=== PATIENT | female | born 2000 | race Caucasian/White ===

== ENCOUNTER 2025-05-08 10:14 | Emergency (ER) | payer OTHER, SELFPAY ==
[2025-05-08 10:17] VITALS: BP 150/86; PULSE 85; RESP 18; TEMP 36.6; O2SAT 100; BMI 32.3
--- NOTE | 2025-05-08 10:24 | ECG_ITS ---
Test Reason : allergic reaction Blood Pressure : */* mmHG Vent. Rate : 74 BPM Atrial Rate : 74 BPM P-R Int : 146 ms QRS Dur : 88 ms QT Int : 376 ms P-R-T Axes : 33 3 16 degrees QTcB Int : 417 ms Normal sinus rhythm Normal ECG No previous ECGs available Referred By: Zina Castro Electronically Signed By: Sergey Mckeon
[2025-05-08 10:27] VITALS: BP 119/76; PULSE 76; RESP 12; TEMP 36.9; O2SAT 100
--- NOTE | 2025-05-08 10:37 | ED_ITS ---
HPI - Allergic Reaction General Chief complaint: Allergic Reaction Stated complaint: allergic reaction Time Seen by Provider: 05/08/25 10:30 Source: patient Mode of arrival: ambulatory Limitations: no limitations History of Present Illness ED Provider: Emerald Da Silva PA-C HPI narrative: 25-year-old female presenting to the emergency department today over concerns of allergic reaction. About 1 hour prior to arrival, patient was in on a surgery wearing a mask at a [facility]. She felt she had an allergic reaction happening, when she asked anyone about her any known allergen of broccoli; the surgeon had broccoli prior to arrival. Patient's face started to flush and she felt itchy she stepped out of the surgery and started develop hives both on her face and chest this concerned her where she took Benadryl and then driving home she started to feel like she had some chest tightness and vomited and as she was close to here drove herself here. She took 50 mg PO benadryl prior to arrival (at first reported only as 25 mg). She has had anxiety before in the past and this feels different to her she has never had hives with anxiety. She denies any current GI distress just feels like her chest is tight. She denies any lip or tongue swelling. When she was younger she had allergic reaction to broccoli and can not recall if it was anaphylaxis or not and has not had it again since that time. She has not carry an EpiPen on her. She reported days of rash on chest in triage, but denied this to me and reported only today. MD complaint: allergic reaction Related Data Previous Rx's ?Medication ?Instructions ?Recorded epinephrine 0.3 mg/0.3 mL 0.3 mg (0.3 mL) IM Q10M PRN 05/08/25 injection, auto-injector (EpiPen anaphylaxis #2 ea 2-Sebastian) prednisone 20 mg tablet 40 mg (2 x 20 mg) PO DAILY # 8 tabs 05/08/25 Allergies Allergy/AdvReac Type Severity Reaction Status Date / Time amoxicillin Allergy Anaphylaxis Verified 05/08/25 10:19 broccoli Allergy Anaphylaxis Verified 05/08/25 10:19 cauliflower Allergy Anaphylaxis Verified 05/08/25 10:19 Review of Systems 2 Review of Systems: Yes all other systems are reviewed and are negative PMFSH Past Medical History Attestation statement: The following information was validated with the patient. Source: old records reviewed and nursing notes reviewed Social History Social History Advance Directives: Yes Advance Directives Information Provided: Yes Advance Directives on File: No Physical Exam ED Exam Exam: General: Appears in no acute distress, appears well nourished body habitus is average, appears stated age. No septic or ill-appearing. Vitals reviewed normal, PMH/Social and Surgical hx reviewed including allergies and current medications. - reviewed for prior visits here Head: Normocephalic, no obvious trauma or skin lesions noted. Patient appears anxious Eyes: EOMI ENMT: moist oral mucosa, uvula is midline no trismus no tongue or lip swelling, mild hives on patient's bilateral zygomatic arches, no lymphadenopathy. Neck: trachea midline, no accessory muscle use, few hives on patient's anterior chest wall Cardiovascular: peripheral perfusion normal, Regular heart rate, regular rhythm Respiratory: no respiratory distress, lungs clear to auscultation bilaterally patient making full sentences Abdomen: nondistended Extremities: warm and moving without difficulty unless otherwise detailed in physical exam if applicable. Psych: Cooperative Neuro: Alert and oriented. Vital Signs: Vital Signs - 24 hr 05/08/25 10:27 05/08/25 11:50 05/08/25 12:00 Temperature 98.4 F 98.2 F 98.2 F Pulse Rate 76 78 78 Respiratory Rate 12 15 15 Blood Pressure 119/76 137/68 137/68 Pulse Oximetry 100 100 100 Oxygen Delivery Method Room Air Room Air Room Air BMI result Body Mass Index 32.3 Medications Administered Discontinued Medications Generic Name Dose Route Start Last Admin Trade Name Freq PRN Reason Stop Dose Admin Epinephrine 0.3 mg 05/08/25 10:37 05/08/25 11:06 Epinephrine 1 Mg/Ml Vial IM 05/08/25 10:38 Not Given STAT STA Famotidine 20 mg 05/08/25 10:37 05/08/25 11:04 Famotidine/Pf 20 Mg/2 Ml Vial IVPUSH 05/08/25 10:38 20 mg ONCE ONE Administration Methylprednisolone Sodium Succinate 60 mg 05/08/25 10:37 05/08/25 11:04 Methylprednisolone Sod Succ 125 Mg/2 Ml Vial IVPUSH 05/08/25 10:38 60 mg ONCE ONE Administration Medical Decision Making Medical Decision Making [facility] Narrative: Well-appearing 25-year-old female with known history to broccoli exposed via air droplets today with diffuse hives. Upon arrival to ED she is afebrile and well- appearing no acute distress vital signs and normal. The patient was promptly seen and evaluated. ?They arrived with concerns for an allergic reaction. ?Patient had diffuse hives on face, GI distress and chest tightness, VSS. ?I was concerned about anaphylaxis ?Epinephrine, Solu-Medrol, and Pepcid were ordered. ?Patient had already taken Benadryl 50 mg (helped hives on face and chest). ?She is not hypotensive IV fluids deferred. From triage basic labs were ordered. Patient has declined epinephrine stating that she feels better and does not want to stay. Hives have completely diminished her lungs remain clear to auscultation bilaterally no evidence of angioedema or anaphylaxis. Labs show microcytic anemia she denies feeling short of breath or dizziness or lightheadedness. Recommend following up outpatient with her PCP. no metabolic dysfunction. This is felt to be an allergic reaction. This patient was not given epinephrine and wished to go home it has been at least 2 hours it did feel this would be appropriate but I gave her a script for EpiPen as well as prednisone to kidney new starting tomorrow. Patient will seek medical attention again for concerns she was given ED precautions she agreed to plan. she was discharged home Differential Diagnosis Differential Diagnoses: The differential diagnosis associated with the presentation includes anaphylaxis urticaria allergic reaction stress hives Admission/Observation Consideration of admission/observation: Escalation of care including admission/observation considered Patient would have been admitted to the hospital had her work up had any findings where hospital admission was appropriate and her clinical presentation warranted hospital admission. Lab Data [facility] Lab Attestation statement: I reviewed the patient's lab results. anemia 05/08/25 10:37 05/08/25 10:37 Labs: Lab Results 05/08/25 Range/Units 10:37 WBC 8.6 (4.8-10.8) X10*3/uL RBC 4.77 (4.20-5.50) X10*6/uL Hgb 9.4 L (12.0-16.0) g/dl Hct 31.5 L (37.0-47.0) % MCV 66.0 L (80.0-98.0) fL MCH 19.7 L (27.0-33.0) pg MCHC 29.8 L (31.0-35.0) g/dl RDW 18.0 H (11.0-16.0) % Plt Count 460 H (160-400) X10*3/uL MPV 10.1 (9.4-12.3) fL Immature Gran % (Auto) 0.1 (0.0-0.4) % Neut % (Auto) 62.7 (45-73) % Lymph % (Auto) 27.8 (20-40) % Randolph % (Auto) 7.9 (2-11) % Eos % (Auto) 1.0 (0-4) % Baso % (Auto) 0.5 (0-2) % Lymph # (Auto) 2.4 (1.2-4.9) X10*3/uL Randolph # (Auto) 0.7 (0.1-1.2) X10*3/uL Eos # (Auto) 0.1 (0.0-0.4) X10*3/uL Baso # (Auto) 0.0 (0.0-0.2) X10*3/uL Abs Immat Gran (auto) 0.01 (0.00-0.03) X10*3/uL Absolute Neuts (auto) 5.4 (2.0-8.3) x10*3/uL Absolute Nucleated RBC 0.000 (0.0-0.012) X10*3/uL Nucleated RBC % (auto) 0.0 (0.0-0.2) /100WBC Sodium 142 (135-145) mmol/L Potassium 3.8 (3.3-5.1) mmol/L Chloride 108 (96-108) mmol/L Carbon Dioxide 25 (22-29) mmol/L Anion Gap 13 (12-20) BUN 10 (9-16) mg/dL Creatinine 0.62 (0.5-1.4) mg/dL Estim Creat Clear Calc 154.6 Estimated GFR > 60 Random Glucose 80 (60-115) mg/dL Calcium 9.5 (8.4-10.2) mg/dL Magnesium 2.0 (1.6-2.6) mg/dL Total Bilirubin 0.3 (0.0-1.0) mg/dL AST 30 (5-31) U/L ALT 21 (0-31) U/L Alkaline Phosphatase 92 (39-117) U/L Total Protein 7.3 (6.5-8.0) g/dL Albumin 4.8 (3.5-5.0) g/dL Independent Interpretation I performed an independent interpretation of an: EKG Interpretation: 74 bpm, No overt evidence of STEMI. No evidence of Brugada's sign, delta wave, epsilon wave, significantly prolonged QTc, or malignant arrhythmia Prescription Management I considered prescription management with: Other (Steroids and epinephrine) Discharge Plan Discharge Clinical Impression: Allergic reaction, Anemia Patient Disposition: Home, Self-Care Additional Instructions: You were evaluated for hives and respiratory symptoms following known allergen exposure. You declined epinephrine while here. You received IV steroid and histamine rasheed (famotidine) while here. You hives resolved. This appears to be an allergic reaction. Take prednisone starting tomorrow to help prevent rebound reaction. Allergic reactions tend to wax and wane.? You may have symptoms over a few days. Take benadryl 25-50 mg every 6-8 hours for 2-3 days, or until it has been 24 hours since you had any allergic symptoms, then as needed for allergic symptoms. Return immediately for worsening rash, wheezing, shortness of breath, throat closing, difficulty breathing, tongue swelling or any other concerns. You should see your doctor or return to the clinic in the next 2-3 days for follow-up. Use epinephrine if concerns of lip or tongue swelling or dyspnea with allergy in the future then call 911. Prescriptions: New prednisone 20 mg tablet 40 mg PO DAILY Qty: 8 0RF epinephrine [EpiPen 2-Sebastian] 0.3 mg/0.3 mL auto-injector 0.3 mg IM Q10M PRN (Reason: anaphylaxis) Qty: 2 0RF Rx Instructions: for 2 doses Referrals: Physician,Unknown J [Primary Care Provider, Medical] Stand Alone Forms: Work/School Release Interventions: ED Discharge Assessment Last Done: 05/08/25 12:00 Discharge Date/Time: 05/08/25 12:07 Print Language: Greenlandic
[2025-05-08 10:54] LABS: MANUAL DIFF FLAG NO
[2025-05-08 11:02] LABS: Hematocrit 31.5 % (37.0-47.0); Hemoglobin 9.4 g/dl (12.0-16.0); Imm Gran Abs Auto 0.01 X10*3/uL (0.00-0.03); Imm Gran Pct Auto 0.1 % (0.0-0.4); Lymphocytes Absolute Auto 2.4 X10*3/uL (1.2-4.9); Mean Corpuscular HGB Conc 29.8 g/dl (31.0-35.0); Mean Corpuscular Hemoglobin 19.7 pg (27.0-33.0); Mean Corpuscular Volume 66.0 fL (80.0-98.0); NRBC Abs Auto 0.000 X10*3/uL (0.0-0.012); NRBC Pct Auto 0.0 /100WBC (0.0-0.2); Platelet Count 460 X10*3/uL (160-400); Red Blood Count 4.77 X10*6/uL (4.20-5.50); White Blood Count 8.6 X10*3/uL (4.8-10.8)
[2025-05-08 11:26] LABS: Alanine Aminotransferase 21 U/L (0-31); Albumin Level 4.8 g/dL (3.5-5.0); Alkaline Phosphatase 92 U/L (39-117); Anion Gap 13 (12-20); Aspartate Amino Transferase 30 U/L (5-31); Blood Urea Nitrogen 10 mg/dL (9-16); Calcium 9.5 mg/dL (8.4-10.2); Carbon Dioxide 25 mmol/L (22-29); Chloride 108 mmol/L (96-108); Creatinine Clr Calc Pharmacy 154.6; Estimated Glomerular Filt Rate > 60; Magnesium 2.0 mg/dL (1.6-2.6); Potassium 3.8 mmol/L (3.3-5.1); Sodium 142 mmol/L (135-145); Total Protein 7.3 g/dL (6.5-8.0)
[2025-05-08 11:50] VITALS: BP 137/68; PULSE 78; RESP 15; TEMP 36.8; O2SAT 100
[2025-05-08 12:00] VITALS: BP 137/68; PULSE 78; RESP 15; TEMP 36.8; O2SAT 100
--- OUTSIDE RECORDS SUMMARY | 2025-05-08 12:34 | XMS_ITS | Encounter Summary ---
Author Organization [facility] Address [address] [place] [address] Phone Care Team Providers Care Face Burler Name Role Phone Shawna Jacobson MD Primary Care Provider [phone] Reason for Visit * Reason Comments Med Refill Encounter Details Date Type Department Care Team ([facility] st Contact Info) Description 04/16/2020 Refill [facility] [address] [address] Mindi Abdi NP [address] [phone] Anxiety Social History Tobacco Use Types Packs/Day Years Used Date Smoking Tobacco: Never Comments:never smoker Comments Unknown Sex and Gender Information Value Date Recorded Sex Assigned at Female 04/21/2019 2:00 PM EDT Legal Sex Female 4:37 PM EST Gender Identity Female 04/21/2019 2:00 PM EDT Sexual Orientation Bisexual 04/21/2019 2: 00 PM EDT documented as of this encounter Miscellaneous Notes * Telephone Encounter - Baldomero Juan RN - 04/16/2020 1:11 PM EDT Last CP: 04/21/19 Last RF: 02/15/20 x2 mo Pt has VV CP tomorrow 04/17/20 with [facility], can refill then To [facility], looks like pt will need refill of both 10mg and 20 mg capsules documented in this encounter Plan of Treatment Not on file documented as of this encounter Visit Diagnoses Diagnosis Anxiety Anxiety state, unspecified documented in this encounter Care Teams Face Burler Relationship Specialty Start Date End Date Kavon, Shawna J, MD [address] [place] [address] PCP - General 10/27/16 11/03/21 documented as of this encounter
--- OUTSIDE RECORDS SUMMARY | 2025-05-08 12:34 | XMS_ITS | Encounter Summary ---
Author Organization [facility] Address [address] [place] [address] Phone Care Team Providers Care Coining Press Operator Name Role Phone Shawna Jacobson MD Primary Care Provider [phone] Encounter Details Date Type Department Care Team ([facility] st Contact Info) Description 02/16/2017 Conversion Encounter [facility] [address] [address] Shawna Jacobson MD [address] [address] Social History Tobacco Use Types Packs/Day Years Used Date Smoking Tobacco: Never Comments:never smoker Comments Unknown Sex and Gender Information Value Date Recorded Sex Assigned at Female 04/21/2019 2:00 PM EDT Legal Sex Female 4:37 PM EST Gender Identity Female 04/21/2019 2:00 PM EDT Sexual Orientation Bisexual 04/21/2019 2: 00 PM EDT documented as of this encounter Plan of Treatment Not on file documented as of this encounter Visit Diagnoses Not on filedocumented in this encounter Care Teams Coining Press Operator Relationship Specialty Start Date End Date Shawna Jacobson MD [address] [address] PCP - General 10/27/16 11/03/21 documented as of this encounter
--- OUTSIDE RECORDS SUMMARY | 2025-05-08 12:34 | XMS_ITS | Encounter Summary ---
Author Organization [facility] Address [address] [place] [phone] Phone Care Team Providers Care Food Product Inspector Name Role Phone Shawna Jacobson MD Primary Care Provider [phone] Reason for Visit * Reason Comments Med Refill Encounter Details Date Type Department Care Team ([facility] st Contact Info) Description 05/16/2020 Refill [facility] [address] [place] [address] Shawna Jacobson MD 57 [place] [address] Herpes; Attention deficit hyperactivity disorder (ADHD), unspecified ADHD type Social History Tobacco Use Types Packs/Day Years Used Date Smoking Tobacco: Never Comments:never smoker Hunger/Food Answer Date Recorded In the last 12 months, did y ou or your family ever eat less than you felt you should because there wasn't enough money for food? No 05/17/2020 Stable Housing Answer Date Recorded Are you worried that in the next 2 months you may not have stable housing? No 05/17/2020 Transportation Concerns Answer Date Rec orded In the last 12 months, have you or your family ever had to go without healthcare because you didn't have a way to get there? No 05/17/2020 Hazards in Home Answer Date Recorded Think about the place you li ve. Do you have problems with any of the following? Pests (mice or roaches), mold, no/not working smoke detectors, water leaks, no window guards. No 2019 Financing Utilities Answer Date Recorde d In the last 12 months, has t he electric, gas, oil, or water company threatened to shut off your services in your home? No 05/17/2020 Safety at Home Answer Date Recorded Are you or your family worried about feeling saf e in your home? No 05/17/2020 Outside Support Answer Date Recorded Do you feel that you need mo re support from other people or programs to help you care for yourself or your family? No 05/17/2020 Understanding Health Concerns Answer Da te Recorded Do you need help understandi ng your or your child's healthcare needs (diagnosis, medications, plan, etc.)? No 05/17/2020 Financing Health Concerns Answer Date R ecorded In the last 12 months, was t here a time when your child needed to see a doctor or get medications or supplies but could not because of cost? No 05/17/2020 Missing School or Work Answer Date Emerson rded Did you or your child miss s chool or work because of a health problem that could have been avoided? No 05/17/2020 Comments Unknown Sex and Gender Information Value Date Recorded Sex Assigned at Female 04/21/2019 2:00 PM EDT Legal Sex Female 4:37 PM EST Gender Identity Female 04/21/2019 2:00 PM EDT Sexual Orientation Bisexual 04/21/2019 2: 00 PM EDT documented as of this encounter Miscellaneous Notes * Telephone Encounter - Shawna Jacobson MD - 05/16/2020 1:41 PM EDT [facility] * Telephone Encounter - Baldomero Juan RN - 05/16/2020 11:07 AM EDT VV booked for next week with [facility]. Also requesting adderall refill Last RF 01/17/20, 1 mo supply [facility], ok to refill both acyclovir (pt completely out) and adderall? * Telephone Encounter - Baldomero Juan RN - 05/16/2020 10:28 AM EDT Last CP 04/21/19 Last RF 01/17/20 Pt overdue for CP, LMTCB to book documented in this encounter Plan of Treatment Not on file documented as of this encounter Visit Diagnoses Diagnosis Herpes Herpes simplex without mention of complication Attention deficit hyperactivity disorder (ADHD), unspecified ADHD type documented in this encounter Care Teams Food Product Inspector Relationship Specialty Start Date End Date Shawna Jacobson MD [address] [place] [address] PCP - General 10/27/16 11/03/21 documented as of this encounter
--- OUTSIDE RECORDS SUMMARY | 2025-05-08 12:34 | XMS_ITS | Encounter Summary ---
Author Organization [facility] Address [address] [place] [address] Phone Care Team Providers Care Heat Transfer Technician Name Role Phone Sahwna Jacobson MD Primary Care Provider [phone] Reason for Visit * Reason Onset Date Comments Med Refill Med Refill 09/20/2018 Encounter Details Date Type Department Care Team (Late st Contact Info) Description 09/13/2018 Refill [facility] [address] [address] Shawna Jacobson MD [address] [address] Herpes Social History Tobacco Use Types Packs/Day Years Used Date Smoking Tobacco: Never Comments:never smoker Comments Unknown Sex and Gender Information Value Date Recorded Sex Assigned at Female 04/21/2019 2:00 PM EDT Legal Sex Female 4:37 PM EST Gender Identity Female 04/21/2019 2:00 PM EDT Sexual Orientation Bisexual 04/21/2019 2: 00 PM EDT documented as of this encounter Miscellaneous Notes * Telephone Encounter - Marla Mike RN - 09/13/2018 3:28 PM EST Pharmacy requesting refill for acyclovir Last CP 12/31/17, last refill 08/27/18 for 120 tabs sent to [facility]. Spoke with pharmacy, ready for tack picker but pt has not come by. They will contact her documented in this encounter Plan of Treatment Not on file documented as of this encounter Visit Diagnoses Diagnosis Herpes Herpes simplex without mention of complication documented in this encounter Care Teams Heat Transfer Technician Relationship Specialty Start Date End Date Shawna Jacobson MD 57 [place] [address] PCP - General 10/27/16 11/03/21 documented as of this encounter
--- OUTSIDE RECORDS SUMMARY | 2025-05-08 12:34 | XMS_ITS | Encounter Summary ---
Author Organization [facility] Address [address] [place] [address] Phone Care Team Providers Care Research Archaeologist Name Role Phone Shawna Jacobson MD Primary Care Provider [phone] Reason for Visit * Reason Onset Date Comments Med Refill 10/16/2021 Encounter Details Date Type Department Care Team ([facility] st Contact Info) Description 10/16/2021 Refill [facility] [address] [place] [address] Shawna Jacobson MD [address] [place] [address] ADHD, hyperactive-impulsive type Social History Tobacco Use Types Packs/Day Years Used Date Smoking Tobacco: Never Comments:never smoker Hunger/Food Answer Date Recorded In the last 12 months, did y ou or your family ever eat less than you felt you should because there wasn't enough money for food? No 05/24/2021 Stable Housing Answer Date Recorded Are you worried that in the next 2 months you may not have stable housing? No 05/24/2021 Transportation Concerns Answer Date Rec orded In the last 12 months, have you or your family ever had to go without healthcare because you didn't have a way to get there? No 05/24/2021 Hazards in Home Answer Date Recorded Think about the place you li ve. Do you have problems with any of the following? Pests (mice or roaches), mold, no/not working smoke detectors, water leaks, no window guards. No 2020 Financing Utilities Answer Date Recorde d In the last 12 months, has t he electric, gas, oil, or water company threatened to shut off your services in your home? No 05/24/2021 Safety at Home Answer Date Recorded Are you or your family worried about feeling saf e in your home? No 05/24/2021 Outside Support Answer Date Recorded Do you feel that you need mo re support from other people or programs to help you care for yourself or your family? No 05/24/2021 Understanding Health Concerns Answer Da te Recorded Do you need help understandi ng your or your child's healthcare needs (diagnosis, medications, plan, etc.)? No 05/24/2021 Financing Health Concerns Answer Date R ecorded In the last 12 months, was t here a time when your child needed to see a doctor or get medications or supplies but could not because of cost? No 05/24/2021 Missing School or Work Answer Date Emerson rded Did you or your child miss s chool or work because of a health problem that could have been avoided? No 05/24/2021 Comments Unknown Sex and Gender Information Value Date Recorded Sex Assigned at Female 04/21/2019 2:00 PM EDT Legal Sex Female 4:37 PM EST Gender Identity Female 04/21/2019 2:00 PM EDT Sexual Orientation Bisexual 04/21/2019 2: 00 PM EDT documented as of this encounter Miscellaneous Notes * Telephone Encounter - Archana Stephen RN - 10/17/2021 10:32 AM EST [facility] please see alt refill request and DENY this request * Telephone Encounter - Neris Wilson RN - 10/16/2021 2:53 PM EST See alt rx request. RN unable to deny documented in this encounter Plan of Treatment Not on file documented as of this encounter Visit Diagnoses Diagnosis ADHD, hyperactive-impulsive type documented in this encounter Care Teams Research Archaeologist Relationship Specialty Start Date End Date Shawna Jacobson MD [address] [place] [address] PCP - General 10/27/16 11/03/21 documented as of this encounter
--- OUTSIDE RECORDS SUMMARY | 2025-05-08 12:34 | XMS_ITS | Encounter Summary ---
Author Organization [facility] Address [address] [place] [address] Phone Care Team Providers Care Tool Planner Name Role Phone Unavailable Primary Care Provider Unavailabl e Reason for Visit * Reason Comments Med Refill Encounter Details Date Type Department Care Team ([facility] st Contact Info) Description 01/05/2022 Refill [facility] 57 [facility] [address] [place] [address] Bia Green NP [address] [address] Anxiety Social History Tobacco Use Types Packs/Day [...] encounter Miscellaneous Notes * Telephone Encounter - Jennifer Healy RN - 01/06/2022 11:08 AM EDT rx refused pt inactive documented in this encounter Plan of Treatment Not on file documented as of this encounter Visit Diagnoses Diagnosis Anxiety Anxiety state, unspecified documented in this encounter
--- OUTSIDE RECORDS SUMMARY | 2025-05-08 12:34 | XMS_ITS | Encounter Summary ---
Author Organization [facility] Address [address] [place] [address] Phone Care Team Providers Care Retoucher Photoengraving Name Role Phone Shawna Jacobson MD Primary Care Provider [phone] Reason for Visit * Reason Comments Med Refill Encounter Details Date Type Department Care Team ([facility] st Contact Info) Description 09/13/2018 Refill [facility] [address] [place] [place] [address] Shawna Jacobson MD [address] [place] [address] Other acne Social History Tobacco Use Types Packs/Day Years [...] Telephone Encounter - Shawna Jacobson MD - 09/14/2018 10:15 AM EST [facility] * Telephone Encounter - Whitney Simon RN - 09/13/2018 1:52 PM EST Last CP: 12/31/17 Last RF: 01/27/18 (30 days with 2 refills) *Med check was scheduled and cancelled for 09/08/18 [facility]- how would you like to proceed? documented in this encounter Plan of Treatment Not on file documented as of this encounter Visit Diagnoses Diagnosis Other acne documented in this encounter Care Teams Retoucher Photoengraving Relationship Specialty Start Date End Date Shawna Jacobson MD [address] [address] PCP - General 10/27/16 11/03/21 documented as of this encounter
--- OUTSIDE RECORDS SUMMARY | 2025-05-08 12:34 | XMS_ITS | Encounter Summary ---
Author Organization [facility] Address [address] [place] [address] Phone Care Team Providers Care Box Covering Machine Operator Name Role Phone Shawna Jacobson MD Primary Care Provider [phone] Encounter Details Date Type Department Care Team ([facility] st Contact Info) Description 02/16/2017 Conversion Encounter [facility] [address] [address] Shawna Jacobson MD [address] [address] Social History Tobacco Use Types Packs/Day Years [...] on filedocumented in this encounter Care Teams Box Covering Machine Operator Relationship Specialty Start Date End Date Shawna Jacobson MD [address] [address] PCP - General 10/27/16 11/03/21 documented as of this encounter
--- OUTSIDE RECORDS SUMMARY | 2025-05-08 12:34 | XMS_ITS | Clinical Summary ---
Author Organization [facility] Address [address] [place] [address] Phone Care Team Providers Care Snowboarder Name Role Phone Dianne Valdez MD Unavailable [phone] Shawna Jacobson MD Primary Care Provider [phone] Shawna Jacobson MD Unavailable [phone] Medications amphetamine-dex troamphetamine (AdderalL) 30 mg tablet mg, tab, PO, BID, Refills: 0, Entered: 10/03/18 9:27:17 EST 9 Active desogestreL-eth inyl estradioL (Apri) 0.15-0.03 mg tablet Entered: 08/20/16 11:36:09 EST 6 Active diclofenac sodium (Voltaren) 1 % gel Dose: 4 g, TOP, QID, PRN Pain: Moderate/Sever e (Score 4-10), Dispense Quantity: 100 g, Entered: 02/23/19 12:24:56 EDT, [facility] [id number] 9 Active fluoxetine HCl (PROZAC ORAL) PO, daily, Entered: 02/18/17 9:46:38 EDT 7 Active gabapentin 100 mg capsule See Instructions, Special Instructions: Route = PO. START dose and freq = 100mg QHS. Increase every 2 days to GOAL dose and freq = 300 BID as instructed., Dispense Quantity: 30 cap, Entered: 09/14/22 17:17:00 EST, [facility] Date[facility] 3 Active gabapentin 300 mg capsule Dose: 300 mg, Dose Amount: 1 cap, PO, BID, Dispense Quantity: 60 cap, Refills: 2, Entered: 10/22/22 7:17:00 EST, [id number] 3 Active Immunizations Immunization Administration Dates Next Due Moderna SARS-CoV-2 09/25/2021 Social History Tobacco Use Types Packs/Day Years Used Date Smoking Tobacco: Never Assessed Comments Unknown Sex and Gender Information Value Date Recorded Sex Assigned at Not on file Legal Sex Female 3:47 PM EDT Gender Identity Not on file Sexual Orientation Not on file Last Filed Vital Signs Vital Sign Reading Time Taken Comments Blood Pressure 120/81 09/09/2022 10:45 AM EST Pulse 76 09/09/2022 10:45 AM EST Temperature - - Respiratory Rate 20 09/09/2022 10:45 AM EST Oxygen Saturation 99% 09/09/2022 10:45 AM EST Inhaled Oxygen Concentration - - Weight 101 kg (222 lb 0.1 oz) 10/22/2022 7:16 AM EST Height 169.5 cm (5' 6.73 ) 10/22/2022 7:16 AM ES T Body Mass Index 35.05 10/22/2022 7:16 AM EST Plan of Treatment Upcoming Encounters Date Type Department Care Team (Late st Contact Info) Description 11/06/2025 Lab Requisition [facility] Health Maintenance Due Date Last Done Comments HIV Screening 1998 MMR Vaccines (1 of 1 - Stand jennifer series) 1999 DTaP/Tdap/Td Vaccines (1 - Tdap) 2005 Varicella Vaccines (1 of 2 - 13+ 2-dose series) 2011 Hepatitis C Screening 01/13/2016 Hepatitis B Vaccines (1 of 3 - 19+ 3-dose series) 2017 COVID-19 Vaccine (2 - 2023-2 5 season) 2024 09/25/2021 HPV Vaccines (1 - 3-dose SCD M series) 2025 Influenza Vaccine (#1) 2025 HIB Vaccines Aged Out No longer eligi ble based on patient's age to complete this topic Hepatitis A Vaccines Aged Out No long er eligible based on patient's age to complete this topic IPV Vaccines Aged Out No longer eligi ble based on patient's age to complete this topic Meningococcal B Vaccine Aged Out No l onger eligible based on patient's age to complete this topic Meningococcal Vaccine Aged Out No lety yamilet eligible based on patient's age to complete this topic Pneumococcal Vaccine: Pediat rics (0 to 5 Years) and At-Risk Patients (6 to 49 Years) Aged Out No longer eligi ble based on patient's age to complete this topic Rotavirus Vaccines Aged Out No longer eligible based on patient's age to complete this topic Care Teams Snowboarder Relationship Specialty Start Date End Date Dianne Valdez MD [address] [place] [address] PCP - Insurance PCP 07/07/22 Shawna Jacobson MD [address] [place] [address] PCP - General 10/15/17 Shawna Jacobson MD [address] [place] [address] PCP - Clinical PCP 10/15/17
--- OUTSIDE RECORDS SUMMARY | 2025-05-08 12:34 | XMS_ITS | Encounter Summary ---
Author Organization [facility] Address [address] [place] [address] Phone Care Team Providers Care Party Host Name Role Phone Shawna Jacobson MD Primary Care Provider [phone] Reason for Visit * Reason Onset Date Comments Med Refill 06/08/2021 Encounter Details Date Type Department Care Team ([facility] st Contact Info) Description 06/08/2021 Refill [facility] [address] [place] [address] Shawna Jacobson MD 57 [place] [address] ADHD, hyperactive-impulsive type Social History Tobacco Use [...] encounter Miscellaneous Notes * Telephone Encounter - Maame Moseley NP - 06/11/2021 8:32 AM EDT Has upcoming appointment, will refill then * Telephone Encounter - Baldomero Juan RN - 06/09/2021 2:28 PM EDT Spoke w/ pt, booked CP w/ [facility] for next week R[facility], pt also returning your call from Wednesday, looking to touch base. Working till 8 tonight Pt would like call when rx was sent * Telephone Encounter - Minoo Dias RN - 06/09/2021 1:04 PM EDT Last Well Visit 05/22/2020 Last refill 05/13/2021 x 1 month Last medication check 02/21/2021 LMTCB to schedule well visit To [facility] prescription pended for your review and approval documented in this encounter Plan of Treatment Not on file documented as of this encounter Visit Diagnoses Diagnosis ADHD, hyperactive-impulsive type documented in this encounter Care Teams Party Host Relationship Specialty Start Date End Date Shawna Jacobson MD [address] [address] PCP - General 10/27/16 11/03/21 documented as of this encounter
--- OUTSIDE RECORDS SUMMARY | 2025-05-08 12:34 | XMS_ITS | Encounter Summary ---
Author Organization [facility] Address [address] [place] [address] Phone Care Team Providers Care Public Service Officer Name Role Phone Shawna Jacobson MD Primary Care Provider [phone] Reason for Visit * Reason Onset Date Comments Med Refill 06/24/2020 Med Refill 07/16/2020 Encounter Details Date Type Department Care Team ([facility] st Contact Info) Description 06/24/2020 Refill [facility] [address] [address] Shawna Jacobson MD 57 [place] [address] Anxiety; ADHD, hyperactive-impulsive type Social History Tobacco Use [...] Telephone Encounter - Archana Stephen RN - 06/24/2020 11:48 AM EDT Last CP:05/22/20 Last Refill:06/21/20 & 07/21/20 (Adderall), 05/22/20 (Prozac 10mg & 20mg), & 05/22/20 (Hydroxyzine) [facility] please DENY ADDERALL, should have refills at pharmacy. If ok please refill the other meds. I donot have authorization to deny the controlled substance. documented in this encounter Plan of Treatment Not on file documented as of this encounter Visit Diagnoses Diagnosis Anxiety Anxiety state, unspecified ADHD, hyperactive-impulsive type documented in this encounter Care Teams Public Service Officer Relationship Specialty Start Date End Date Shawna Jacobson MD [address] [address] PCP - General 10/27/16 11/03/21 documented as of this encounter
--- OUTSIDE RECORDS SUMMARY | 2025-05-08 12:34 | XMS_ITS | Encounter Summary ---
Author Organization [facility] Address [address] [place] [address] Phone Care Team Providers Care Resistor Winder Name Role Phone Shawna Jacobson MD Primary Care Provider [phone] Reason for Visit * Reason Comments Med Refill Encounter Details Date Type Department Care Team ([facility] st Contact Info) Description 01/28/2021 Refill [facility] 57 [facility] [address] [place] [address] Maame Moseley NP Anxiety Social History Tobacco Use Types Packs/Day [...] Telephone Encounter - Marla Mike RN - 01/29/2021 2:22 PM EDT Pt also requesting refill for Adderall XR 30mg. Pt has hypothyroidism, soonest appt she could schedule at [facility] is 04/29/21. She is struggling with weight, tired and wants to start medication prior toAugust. Would like to discuss starting meds with [facility]. Scheduled med check for 02/05/21 To [facility], okay to refill one month of Adderall XR 30mg? Advised Minda she could discuss thyroid question when she comes in. * Telephone Encounter - Indigo Ballard - 01/29/2021 1:34 PM EDT Called and lm for pt to schedule. Will set reminder to check in in a couple days. * Telephone Encounter - Maame Moseley NP - 01/29/2021 12:36 PM EDT She is on 50. Please have her make a med check appointment in the next few weeks if she can. Thanks! * Telephone Encounter - Marla Mike RN - 01/29/2021 11:18 AM EDT Pharmacy requesting refill for fluoxetine 20mg and 10mg Last CP 05/22/20 Last med check Last refill for 10mg 12/31/20, 20mg 10/25/20 with 2 refills To [facility], is patient on 50mg daily? Has not had a med check since CP on 05/22/20 documented in this encounter Plan of Treatment Not on file documented as of this encounter Visit Diagnoses Diagnosis Anxiety Anxiety state, unspecified documented in this encounter Care Teams Resistor Winder Relationship Specialty Start Date End Date Shawna Jacobson MD [address] [address] PCP - General 10/27/16 11/03/21 documented as of this encounter
--- OUTSIDE RECORDS SUMMARY | 2025-05-08 12:34 | XMS_ITS | Encounter Summary ---
Author Organization [facility] Address [address] [place] [address] Phone Care Team Providers Care Fitting Room Operator Name Role Phone Shawna Jacobson MD Primary Care Provider [phone] Reason for Visit * Reason Comments Med Refill Encounter Details Date Type Department Care Team ([facility] st Contact Info) Description 08/21/2021 Refill [facility] [address] [place] [address] [address] [place] [address] Maame Moseley NP Anxiety Social History Tobacco [...] Telephone Encounter - Maame Moseley NP - 08/25/2021 3:51 PM EST Minda needs to make an appointment before I can refill anything. Happy for that to be telehealth, but at this point I really need to see her documented in this encounter Plan of Treatment Not on file documented as of this encounter Visit Diagnoses Diagnosis Anxiety Anxiety state, unspecified documented in this encounter Care Teams Fitting Room Operator Relationship Specialty Start Date End Date Shawna Jacobson MD [address] [address] PCP - General 10/27/16 11/03/21 documented as of this encounter
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
--- OUTSIDE RECORDS SUMMARY | 2025-05-08 12:34 | XMS_ITS | Encounter Summary ---
Author Organization [facility] Address [address] [place] [address] Phone Care Team Providers Care Low Voltage Technician Name Role Phone Shawna Jacobson MD Primary Care Provider [phone] Encounter Details Date Type Department Care Team ([facility] st Contact Info) Description 02/16/2017 Conversion Encounter [facility] [address] [address] Shawna Jacobson MD [address] [address] Social History Tobacco Use Types Packs/Day Years [...] on filedocumented in this encounter Care Teams Low Voltage Technician Relationship Specialty Start Date End Date Shawna Jacobson MD [address] [address] PCP - General 10/27/16 11/03/21 documented as of this encounter
--- OUTSIDE RECORDS SUMMARY | 2025-05-08 12:34 | XMS_ITS | Encounter Summary ---
Author Organization [facility] Address [address] [place] [address] Phone Care Team Providers Care Cupola Tapper Name Role Phone Shawna Jacobson MD Primary Care Provider [phone] Reason for Visit * Reason Onset Date Comments Med Refill 06/10/2021 Encounter Details Date Type Department Care Team ([facility] st Contact Info) Description 06/10/2021 Refill [facility] [address] [place] [address] Shawna Jacobson MD [address] [place] [address] ADHD, hyperactive-impulsive type Social History Tobacco Use [...] Encounter - Maame Moseley NP - 06/11/2021 8:31 AM EDT Has upcoming appointment, will refill then documented in this encounter Plan of Treatment Not on file documented as of this encounter Visit Diagnoses Diagnosis ADHD, hyperactive-impulsive type documented in this encounter Care Teams Cupola Tapper Relationship Specialty Start Date End Date Shawna Jacobson MD [address] [place] [address] PCP - General 10/27/16 11/03/21 documented as of this encounter
--- OUTSIDE RECORDS SUMMARY | 2025-05-08 12:34 | XMS_ITS | Encounter Summary ---
Author Organization [facility] Address [address] [place] [address] Phone Care Team Providers Care Internet Sales Director Name Role Phone Shawna Jacobson MD Primary Care Provider [phone] Reason for Visit * Reason Comments Med Refill Encounter Details Date Type Department Care Team ([facility] [place] st Contact Info) Description 05/26/2018 Refill [facility] [address] [phone] Shawna Jacobson MD 57 [place] [address] Anxiety Social History Tobacco Use Types Packs/Day [...] encounter Miscellaneous Notes * Telephone Encounter - Jennfier Healy RN - 05/27/2018 2:51 PM EDT Spoke arvind/Minda this was an auto request doesn't need, rx refused documented in this encounter Plan of Treatment Not on file documented as of this encounter Visit Diagnoses Diagnosis Anxiety Anxiety state, unspecified documented in this encounter Care Teams Internet Sales Director Relationship Specialty Start Date End Date Shawna Jacobson MD [address] [address] PCP - General 10/27/16 11/03/21 documented as of this encounter
--- OUTSIDE RECORDS SUMMARY | 2025-05-08 12:34 | XMS_ITS | Encounter Summary ---
Author Organization [facility] Address [address] [place] [address] Phone Care Team Providers Care Director Of Food And Nutrition Services Name Role Phone Shawna Jacobson MD Primary Care Provider [phone] Encounter Details Date Type Department Care Team ([facility] st Contact Info) Description 02/16/2017 Conversion Encounter [facility] [address] [address] Shawna Jacobson MD [address] [address] Social History Tobacco Use Types Packs/Day Years [...] on filedocumented in this encounter Care Teams Director Of Food And Nutrition Services Relationship Specialty Start Date End Date Shawna Jacobson MD [address] [address] PCP - General 10/27/16 11/03/21 documented as of this encounter
== END 2025-05-08 12:07 | disposition home or self-care (01) ==
PROVIDERS: Physician Assistant Medical; Emergency Provider Emergency Medicine
DX: D64.9 Anemia, unspecified (principal); T78.1XXA Other adverse food reactions, not elsewhere classified, initial encounter; L50.8 Other urticaria; X58.XXXA Exposure to other specified factors, initial encounter; R07.89 Other chest pain; R11.10 Vomiting, unspecified; F41.9 Anxiety disorder, unspecified
CPT/HCPCS: 36415; 80053; 83735; 85025; 93005; 96374; 96375; 99284; J1308; J2919

== ENCOUNTER → 2025-05-08 10:24 | Outpatient (BNV) | payer OTHER, SELFPAY | PROVIDERS: Emergency Provider Emergency Medicine; Visit Provider Internal Medicine Cardiovascular Disease | DX: T78.04XA Anaphylactic reaction due to fruits and vegetables, initial encounter (principal) | CPT/HCPCS: 93010 ==

== ENCOUNTER 2025-06-25 12:23 | Emergency (ER) | payer OTHER, SELFPAY ==
--- OUTSIDE RECORDS SUMMARY | 2025-06-25 16:27 | XMS_ITS | Encounter Summary ---
Author Organization [facility] Address [address] [place] [address] Phone Care Team Providers Care Trim And Burr Operator Name Role Phone Shawna Jacobson MD Primary Care Provider [phone] Reason for Visit * Reason Comments Med Refill Encounter Details Date Type Department Care Team ([facility] st Contact Info) Description 04/16/2020 Refill [facility] [address] [address] Mindi Abdi NP [address] [phone] Anxiety Social History Tobacco Use Types Packs/Day [...] unspecified documented in this encounter Care Teams Trim And Burr Operator Relationship Specialty Start Date End Date Kavon, Shawna J, MD 57 [place] [address] PCP - General 10/27/16 11/03/21 documented as of this encounter
--- OUTSIDE RECORDS SUMMARY | 2025-06-25 16:27 | XMS_ITS | Encounter Summary ---
Author Organization [facility] Address [address] [place] [address] Phone Care Team Providers Care Convention Manager Name Role Phone Shawna Jacobson MD Primary Care Provider [phone] Reason for Visit * Reason Comments Med Refill Encounter Details Date Type Department Care Team ([facility] st Contact Info) Description 09/13/2018 Refill [facility] [address] [place] [address] Shawna Jacobson MD 57 [place] [address] Other acne Social History Tobacco Use Types [...] acne documented in this encounter Care Teams Convention Manager Relationship Specialty Start Date End Date Shawna Jacobson MD [address] [address] PCP - General 10/27/16 11/03/21 documented as of this encounter
--- OUTSIDE RECORDS SUMMARY | 2025-06-25 16:27 | XMS_ITS | Encounter Summary ---
Author Organization [facility] Address [address] [place] [address] Phone Care Team Providers Care Nut Tapper Name Role Phone Shawna Jacobson MD Primary Care Provider [phone] Reason for Visit * Reason Comments Med Refill Encounter Details Date Type Department Care Team ([facility] st Contact Info) Description 01/28/2021 Refill [facility] 57 [facility] [address] [place] [address] Maame Moseley NP Anxiety Social History Tobacco [...] hypothyroidism, soonest appt she could schedule at [facility] is 04/29/21. She is struggling with weight, [...] unspecified documented in this encounter Care Teams Nut Tapper Relationship Specialty Start Date End Date Shawna Jacobson MD [address] [address] PCP - General 10/27/16 11/03/21 documented as of this encounter
--- OUTSIDE RECORDS SUMMARY | 2025-06-25 16:27 | XMS_ITS | Clinical Summary ---
Author Organization [facility] Address [address] [place] [address] Phone Care Team Providers Care Filer Finish Name Role Phone Unavailable Primary Care Provider [...] working Hand injury 03/07/2020 Overview (03/07/2020): 02/23/2020: [facility]: out of cast, start mobilization, home-based [...] of right hand 09/16/2018 Overview (02/19/2020): 02/23 [facility] - punched a wall with affected hand and now increased pain; x- rays negative, hardware intact but could not rule out hairline fracture; casted with f/u with Dr. Valladares in 2 weeks 02/22 s/p surgical repair, student at school pulled her finger and sprained joint. Advised splinting and strengthening. F/u in the future ([facility]) 09/24 ORIF planned ADHD, hyperactive-impulsive type [...] also need psychiatry Sees therapist Phylicia Phillips ([phone]) regularly. [facility], now [...] angry and punched wall while inpatient at [facility] No fracture seen at [facility] ED 02/17/18. Injury of left knee [...] complete this topic Procedures * Due to [place] Transfer To law, this organization might not be sharing sensitive test results. Procedure Name Priority Date/Time Associated Diagnosis Comments CHLAMYDIA AND GONORRHEA, AMPLIFIED Routine 10/28/2015 12:00 AM EST from Last 3 Months or Most Recently Relevant to Health Maintenance Results * Due to [place] Transfer To law, this organization might not be sharing sensitive test results. * Chlamydia and Gonorrhoea, Amplified (10/28/2015 12:00 AM EST) FINAL (CONV) See Below For Report CONVERTED LABS 10/28/2015 Lorna Harris NP LAB MICROBIOLOGY - [facility] Final Result Performing Organization Address City/State/[facility] Co de Phone Number CONVERTED LABS from Last 3 Months or Most Recently Relevant to Health Maintenance Insurance
--- OUTSIDE RECORDS SUMMARY | 2025-06-25 16:27 | XMS_ITS | Encounter Summary ---
Author Organization [facility] Address [address] [place] [address] Phone Care Team Providers Care Door Fitter Name Role Phone Shawna Jacobson MD Primary Care Provider [phone] Reason for Visit * Reason Comments Med Refill Encounter Details Date Type Department Care Team ([facility] st Contact Info) Description 05/26/2018 Refill [facility] [address] [phone] Shawna Jacobson MD 57 [place] [address] Anxiety Social History Tobacco Use Types Packs/Day [...] Telephone Encounter - Jennifer Healy RN - 05/27/2018 2:51 PM EDT Spoke arvind/Minda this was an auto request doesn't need, rx refused documented in this encounter Plan of Treatment Not on file documented as of this encounter Visit Diagnoses Diagnosis Anxiety Anxiety state, unspecified documented in this encounter Care Teams Door Fitter Relationship Specialty Start Date End Date Shawna Jacobson MD [address] [address] PCP - General 10/27/16 11/03/21 documented as of this encounter
--- OUTSIDE RECORDS SUMMARY | 2025-06-25 16:27 | XMS_ITS | Encounter Summary ---
Author Organization [facility] Address [address] [place] [address] Phone Care Team Providers Care Game Artist Name Role Phone Shawna Jacobson MD Primary Care Provider [phone] Encounter Details Date Type Department Care Team ([facility] st Contact Info) Description 02/16/2017 Conversion Encounter [facility] [address] [address] Shawna Jacobson MD [address] [address] Social History Tobacco Use Types Packs/Day Years [...] on filedocumented in this encounter Care Teams Game Artist Relationship Specialty Start Date End Date Shawna Jacobson MD [address] [address] PCP - General 10/27/16 11/03/21 documented as of this encounter
--- OUTSIDE RECORDS SUMMARY | 2025-06-25 16:27 | XMS_ITS | Encounter Summary ---
Author Organization [facility] Address [address] [place] [address] Phone Care Team Providers Care Mechanical Engineering Lecturer Name Role Phone Shawna Jacobson MD Primary Care Provider [phone] Reason for Visit * Reason Onset Date Comments Med Refill 06/24/2020 Med Refill 07/16/2020 Encounter Details Date Type Department Care Team ([facility] st Contact Info) Description 06/24/2020 Refill [facility] [address] [address] Shawna Jacobson MD 57 [place] [address] Anxiety; ADHD, hyperactive-impulsive type Social History Tobacco [...] type documented in this encounter Care Teams Mechanical Engineering Lecturer Relationship Specialty Start Date End Date Shawna Jacobson MD [address] [address] PCP - General 10/27/16 11/03/21 documented as of this encounter
--- OUTSIDE RECORDS SUMMARY | 2025-06-25 16:27 | XMS_ITS | Clinical Summary ---
Author Organization [facility] Address [address] [place] [address] Phone Care Team Providers Care Painter Maintenance Name Role Phone Dianne Valdez MD Unavailable [phone] Shawna Jacobson MD Primary Care Provider [phone] Shawna Jacobson MD Unavailable [phone] Medications amphetamine-dex troamphetamine (AdderalL) 30 mg tablet mg, tab, PO, BID, Refills: 0, Entered: 10/03/18 9:27:17 EST 9 Active desogestreL-eth inyl estradioL (Apri) 0.15-0.03 mg tablet Entered: 08/20/16 11:36:09 EST 6 Active diclofenac sodium (Voltaren) 1 % gel Dose: 4 g, TOP, QID, PRN Pain: Moderate/Sever e (Score 4-10), Dispense Quantity: 100 g, Entered: 02/23/19 12:24:56 EDT, [facility] [address] 9 Active fluoxetine HCl (PROZAC ORAL) PO, [...] Health Maintenance Due Date Last Done Comments Chlamydia and Gonorrhea Screening 1998 HIV Screening 1998 MMR Vaccines (1 of 1 - Standard series) 1999 DTaP/Tdap/Td Vaccines (1 - Tdap) 2005 Varicella Vaccines (1 of 2 - 13+ 2-dose series) 2011 Hepatitis C Screening 01/13/2016 Hepatitis B Vaccines (1 of 3 - 19+ 3-dose series) 2017 Influenza Vaccine (#1) 2025 Anemia Screening 08/15/2026 08/15/2021, 11/04/2020 HIB Vaccines Aged Out No longer eligi ble based on patient's age to complete this topic HPV Vaccines (No Doses Required) Completed Hepatitis A Vaccines Aged Out No long [...] age to complete this topic Pneumococcal Vaccine: Pediatrics (0 to 5 Years) and At-Risk Patients (6 to 49 Years) Aged Out No longer eligible b ased on patient's age to complete this topic Rotavirus Vaccines Aged Out No longer eligible based on patient's age to complete this topic Procedures Procedure Name Priority Date/Time Associated Diagnosis Comments CBC W/ AUTO DIFFERENTIAL Routine 08/15/2021 1:01 PM EST from Last 3 Months or Most Recently Relevant to Health Maintenance Results * (ABNORMAL) Complete Blood Count with Differential (08/15/2021 1:01 PM EST) MPV 10.3 9.6 - 11.9 fL [facility] nRBC 0.0 0.0 - 0.0 /100 WBC [facility] RDW 13.5 11.9 - 14.8 % [facility] NRBC # 0.00 0.00 - 0.00 K cells/uL [facility] WBC 11.32(H) 4.94 - 10.04 K cells/uL [facility] MCV 85.2 80.7 - 93.7 fL [facility] MCH 27.9 25.7 - 31.2 pg [facility] MCHC 32.7 31.3 - 34.0 g/dL [facility] RBC 4.88 4.03 - 4.91 M cells/uL [facility] Platelets 350 199 - 352 K cells/uL [facility] Hemoglobin 13.6 11.4 - 14.8 g/dL [facility] Hematocrit 41.6 35.5 - 44.6 % [facility] 08/15/2021 1:01 PM EST 08/15/2021 1:29 PM EST us Cuauhtemoc Blakely MD LAB BLOOD ORDERABLES Final Res ult [facility] [address] [place] [address], [place] [phone] from Last 3 Months or Most Recently Relevant to Health Maintenance Care Teams Painter Maintenance Relationship Specialty Start Date End Date Dianne Valdez MD [address] [place] [address] PCP - Insurance PCP 07/07/22 Shawna Jacobson MD [address] [place] [address] PCP - General 10/15/17 Shawna Jacobson MD [address] [place] [address] PCP - Clinical PCP 10/15/17
--- OUTSIDE RECORDS SUMMARY | 2025-06-25 16:27 | XMS_ITS | Encounter Summary ---
Author Organization [facility] Address [address] [place] [address] Phone Care Team Providers Care Pattern Layout Worker Name Role Phone Shawna Jacobson MD Primary Care Provider [phone] Reason for Visit * Reason Onset Date Comments Med Refill 06/10/2021 Encounter Details Date Type Department Care Team ([facility] st Contact Info) Description 06/10/2021 Refill [facility] [address] [place] [address] Shawna Jacobson MD 57 [place] [address] ADHD, hyperactive-impulsive type Social History Tobacco Use [...] type documented in this encounter Care Teams Pattern Layout Worker Relationship Specialty Start Date End Date Shawna Jacobson MD 57 [place] [address] PCP - General 10/27/16 11/03/21 documented as of this encounter
--- OUTSIDE RECORDS SUMMARY | 2025-06-25 16:27 | XMS_ITS | Encounter Summary ---
Author Organization [facility] Address [address] [place] [address] Phone Care Team Providers Care Powder Truck Driver Name Role Phone Shawna Jacobson MD Primary Care Provider [phone] Reason for Visit * Reason Onset Date Comments Med Refill Med Refill 09/20/2018 Encounter Details Date Type Department Care Team ([facility] st Contact Info) Description 09/13/2018 Refill [facility] [address] [phone] Shawna Jacobson MD [address] [address] Herpes Social History Tobacco Use Types Packs/Day [...] refill 08/27/18 for 120 tabs sent to [facility]. Spoke with pharmacy, ready for quill picking machine operator but pt has not come by. They will contact her documented in this encounter Plan of Treatment Not on file documented as of this encounter Visit Diagnoses Diagnosis Herpes Herpes simplex without mention of complication documented in this encounter Care Teams Powder Truck Driver Relationship Specialty Start Date End Date Shawna Jacobson MD 57 [place] [address] PCP - General 10/27/16 11/03/21 documented as of this encounter
--- OUTSIDE RECORDS SUMMARY | 2025-06-25 16:27 | XMS_ITS | Encounter Summary ---
Author Organization [facility] Address [address] [place] [address] Phone Care Team Providers Care Preparation Center Coordinator Name Role Phone Shawna Jacobson MD Primary Care Provider [phone] Encounter Details Date Type Department Care Team ([facility] st Contact Info) Description 02/16/2017 Conversion Encounter [facility] [address] [address] Shawna Jacobson MD [address] [address] Social History Tobacco Use Types Packs/Day Years [...] on filedocumented in this encounter Care Teams Preparation Center Coordinator Relationship Specialty Start Date End Date Shawna Jacobson MD [address] [address] PCP - General 10/27/16 11/03/21 documented as of this encounter
--- OUTSIDE RECORDS SUMMARY | 2025-06-25 16:27 | XMS_ITS | Encounter Summary ---
Author Organization [facility] Address [address] [place] [address] Phone Care Team Providers Care Market Maker Name Role Phone Shawna Jacobson MD Primary Care Provider [phone] Reason for Visit * Reason Onset Date Comments Med Refill 06/08/2021 Encounter Details Date Type Department Care Team ([facility] st Contact Info) Description 06/08/2021 Refill [facility] [address] [place] [address] Shawna Jacobson MD 57 [place] [address] ADHD, hyperactive-impulsive type Social History Tobacco Use [...] type documented in this encounter Care Teams Market Maker Relationship Specialty Start Date End Date Shawna Jacobson MD [address] [address] PCP - General 10/27/16 11/03/21 documented as of this encounter
--- OUTSIDE RECORDS SUMMARY | 2025-06-25 16:27 | XMS_ITS | Encounter Summary ---
Author Organization [facility] Address [address] [place] [address] Phone Care Team Providers Care Manager Channel Name Role Phone Shawna Jacobson MD Primary Care Provider [phone] Reason for Visit * Reason Comments Med Refill Encounter Details Date Type Department Care Team ([facility] st Contact Info) Description 05/16/2020 Refill [facility] [address] [place] [address] Shawna Jacobson MD 57 [place] [address] Herpes; Attention deficit hyperactivity disorder (ADHD), unspecified [...] type documented in this encounter Care Teams Manager Channel Relationship Specialty Start Date End Date Shawna Jacobson MD 57 [place] [address] PCP - General 10/27/16 11/03/21 documented as of this encounter
--- OUTSIDE RECORDS SUMMARY | 2025-06-25 16:27 | XMS_ITS | Encounter Summary ---
Author Organization [facility] Address [address] [place] [address] Phone Care Team Providers Care Transcription Manager Name Role Phone Shawna Jacobson MD Primary Care Provider [phone] Encounter Details Date Type Department Care Team ([facility] st Contact Info) Description 02/16/2017 Conversion Encounter [facility] [address] [address] Shawna Jacobson MD [address] [address] Social History Tobacco Use Types Packs/Day Years [...] on filedocumented in this encounter Care Teams Transcription Manager Relationship Specialty Start Date End Date Shawna Jacobson MD [address] [address] PCP - General 10/27/16 11/03/21 documented as of this encounter
--- OUTSIDE RECORDS SUMMARY | 2025-06-25 16:27 | XMS_ITS | Encounter Summary ---
Author Organization [facility] Address [address] [place] [address] Phone Care Team Providers Care Railroad Signal Technician Name Role Phone Shawna Jacobson MD Primary Care Provider [phone] Encounter Details Date Type Department Care Team ([facility] st Contact Info) Description 02/16/2017 Conversion Encounter [facility] [address] [address] Shawna Jacobson MD [address] [address] Social History Tobacco Use Types Packs/Day Years [...] on filedocumented in this encounter Care Teams Railroad Signal Technician Relationship Specialty Start Date End Date Shawna Jacobson MD [address] [address] PCP - General 10/27/16 11/03/21 documented as of this encounter
--- OUTSIDE RECORDS SUMMARY | 2025-06-25 16:27 | XMS_ITS | Encounter Summary ---
Author Organization [facility] Address [address] [place] [address] Phone Care Team Providers Care Line Installer Name Role Phone Unavailable Primary Care Provider Unavailabl e Reason for Visit * Reason Comments Med Refill Encounter Details Date Type Department Care Team ([facility] st Contact Info) Description 01/05/2022 Refill [facility] 57 [facility] [address] [place] [address] Bia Green NP [address] [address] Anxiety Social History Tobacco Use Types Packs/Day [...]
--- OUTSIDE RECORDS SUMMARY | 2025-06-25 16:27 | XMS_ITS | Encounter Summary ---
Author Organization [facility] Address [address] [place] [address] Phone Care Team Providers Care Flavoring Maker Name Role Phone Shawna Jacobson MD Primary Care Provider [phone] Reason for Visit * Reason Onset Date Comments Med Refill 10/16/2021 Encounter Details Date Type Department Care Team ([facility] st Contact Info) Description 10/16/2021 Refill [facility] [address] [place] [address] Shawna Jacobson MD 57 [place] [address] ADHD, hyperactive-impulsive type Social History Tobacco Use [...] this request * Telephone Encounter - Neris Wilsno RN - 10/16/2021 2:53 PM EST See alt rx request. RN unable to deny documented in this encounter Plan of Treatment Not on file documented as of this encounter Visit Diagnoses Diagnosis ADHD, hyperactive-impulsive type documented in this encounter Care Teams Flavoring Maker Relationship Specialty Start Date End Date Shawna Jacobson MD 57 [place] [address] PCP - General 10/27/16 11/03/21 documented as of this encounter
--- OUTSIDE RECORDS SUMMARY | 2025-06-25 16:27 | XMS_ITS | Encounter Summary ---
Author Organization [facility] Address [address] [place] [address] Phone Care Team Providers Care Agricultural Adviser Name Role Phone Shawna Jacobson MD Primary Care Provider [phone] Reason for Visit * Reason Comments Med Refill Encounter Details Date Type Department Care Team ([facility] st Contact Info) Description 08/21/2021 Refill [facility] [address] [place] [address] [address] [place] [address] Maame Moseley NP Anxiety Social History Tobacco [...] unspecified documented in this encounter Care Teams Agricultural Adviser Relationship Specialty Start Date End Date Shawna Jacobson MD [address] [address] PCP - General 10/27/16 11/03/21 documented as of this encounter
== END 2025-06-25 13:37 | disposition left against medical advice (07) ==
PROVIDERS: Emergency Provider Emergency Medicine
DX: W55.01XA Bitten by cat, initial encounter (principal); T14.8XXA Other injury of unspecified body region, initial encounter; Y93.9 Activity, unspecified; Y92.9 Unspecified place or not applicable; Y99.9 Unspecified external cause status; Z53.21 Procedure and treatment not carried out due to patient leaving prior to being seen by health care provider